=== PATIENT | male | born 1985 | race American Indian/Alaskan Native ===

== ENCOUNTER 2018-02-19 07:39 | Emergency (ER) | payer OTHER ==
[2018-02-19 08:17] VITALS: BP 128/91
[2018-02-19] MEDS ORDERED: MOTRIN PO ONE (10:39)
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
== END 2018-02-19 11:22 | disposition home or self-care (01) ==
LOC: ED 07:39
DX: S16.1XXA Strain of muscle, fascia and tendon at neck level, initial encounter (principal); S39.012A Strain of muscle, fascia and tendon of lower back, initial encounter; F17.200 Nicotine dependence, unspecified, uncomplicated; F12.10 Cannabis abuse, uncomplicated; V89.2XXA Person injured in unspecified motor-vehicle accident, traffic, initial encounter; Y93.89 Activity, other specified; Y92.89 Other specified places as the place of occurrence of the external cause; Y99.8 Other external cause status
CPT/HCPCS: 99282